=== PATIENT | female | born 1945 | race Two or more races ===

== ENCOUNTER → 2021-01-08 | Outpatient (CLI) | payer OTHER ==
[~2021-01-08] MED LIST: ALBUTEROL SULF 2.5 MG/0.5ML(0.5%) NEB SOLN ONE
== END | disposition home or self-care (01) ==
LOC: RT 10:27
PROVIDERS: ATTEND Internal Medicine Pulmonary Disease
DX: J98.4 Other disorders of lung (principal); R06.00 Dyspnea, unspecified
CPT/HCPCS: 94060; 94727; 94729

== ENCOUNTER → 2024-06-22 | Outpatient (CLI) | payer OTHER ==
--- NOTE | 2024-06-22 13:39 | DVHNC2 ---
Procedure - June 22, 2024 Pulmonary function test interpretation No obstructive or restrictive ventilatory defect. Significant bronchodilator response. Total lung capacity is below normal limits,70% of predicted (3.46 L). Severe reduction in diffusion capacity, 31% of predicted. TYLER YUEN RESIDENT Jun 22, 2024 13:39
--- NOTE | 2024-06-22 13:40 | DVHNC2 ---
Procedure - 6 minute walk test interpretation June 22, 2024 Expected heart rate achieved Completed 6 minutes of ambulation. Significant hypoxic event with the lowest saturation being 86% with exertion. Reduction in distance walk. TYLER YUEN RESIDENT Jun 22, 2024 13:40
== END | disposition home or self-care (01) ==
LOC: RT 10:58
PROVIDERS: ATTEND Internal Medicine Pulmonary Disease
DX: R05.9 Cough, unspecified (principal); R06.09 Other forms of dyspnea
CPT/HCPCS: 94060; 94618; 94727; 94729

== ENCOUNTER 2024-10-12 07:22 | Outpatient (CLI) | payer OTHER ==
[2024-10-12] MEDS ORDERED: LIDOCAINE 2%HCL (LOCAL ANESTH.) INJ 10ml MDV ONE (07:35)
[2024-10-12 09:09] VITALS: BP 126/57; PULSE 55; RESP 15; TEMP 98.3; O2SAT 99
[2024-10-12 09:29] VITALS: BP 121/65; PULSE 59; RESP 18; O2SAT 98
[2024-10-12 10:29] VITALS: BP 118/59; PULSE 64; RESP 21; O2SAT 94
--- NOTE | 2024-10-12 10:58 | DVH ---
EXAM: XY CHEST PORTABLE Indication: POST LUNG BX Technique: Single frontal view of the chest was obtained Comparison: None FINDINGS: Lines and Tubes: None Lungs: Right lower lung masslike opacity. Diffuse interstitial opacities. Pleura: No effusion. No pneumothorax. Cardiomediastinal contours: Unremarkable. Atherosclerotic vascular calcifications of the thoracic ao rta are noted. Bones: No acute osseous abnormality. IMPRESSION: No pneumothorax status post biopsy.
[2024-10-12 11:30] VITALS: BP 103/55; PULSE 57; RESP 20; O2SAT 97
[2024-10-12 11:59] VITALS: BP 99/47; PULSE 55; RESP 18; O2SAT 96
--- NOTE | 2024-10-12 12:02 | DVH ---
EXAM: XY CHEST PORTABLE Indication: DELAYED POST BX Technique: Single frontal view of the chest was obtained Comparison: XY CHEST PORTABLE on DOS: 10/12/24, XY CHEST PORTABLE on DOS: 10/12/24 FINDINGS: Lines and Tubes: None Lungs: Right lower lung masslike opacity. Diffuse interstitial opacities. Pleura: No effusion. No pneumothorax. Cardiomediastinal contours: Unremarkable. Atherosclerotic vascular calcifications of the thoracic ao rta are noted. Bones: No acute osseous abnormality. IMPRESSION: No pneumothorax status post biopsy.
--- NOTE | 2024-10-12 12:25 | DVH ---
CT CT GUIDANCE FOR NEEDLE PLACEME, HISTORY: PULMONARY NODULE PROCEDURE: Informed consent was obtained. The patient was placed supine on the CT scanner. A limited localization CT scan of the lung was obtained. The skin overlying the lesion was prepped with chlorhe xidine which was allowed to dry and draped in sterile fashion. Time out was performed. The skin and s oft tissues were infiltrated with Xylocaine. With intermittent CT guidance, a 19 gauge Temno outer co axial guiding needle was advanced into the right lung nodule. The needle position was confirmed with CT scan. 2 core biopsies were obtained using Temno inner 20 gauge biopsy needle. The specimens were s ent in formalin to pathology for analysis. A visceral blood patch was applied as the needle was wit hdrawn the needle was withdrawn, and post procedural CT obtained through the biopsy region. A small pneumothorax was noted, and patient was transport to recovery in stable condition without respiratory distress. DLP = 2346 mGy-cm. FINDINGS: Limited CT scan demonstrates soft tissue nodule in the right middle lobe and the biopsy ne edle within the margin of the lung mass. Small stable right pneumothorax. IMPRESSION/PLAN: CT guided lung biopsy. Pathology pending. Iatrogenic pneumothorax small and asymptomatic ; will follo w up CXRs. Bedrest until cleared by IR following post-biopsy CXRs.
== END 2024-10-12 17:00 | disposition home or self-care (01) ==
LOC: CT 07:22
PROVIDERS: ATTEND Internal Medicine Pulmonary Disease
DX: R91.1 Solitary pulmonary nodule (principal); J93.83 Other pneumothorax; J45.40 Moderate persistent asthma, uncomplicated; J84.9 Interstitial pulmonary disease, unspecified; J96.11 Chronic respiratory failure with hypoxia; Z79.899 Other long term (current) drug therapy; Z88.0 Allergy status to penicillin; Z88.2 Allergy status to sulfonamides
CPT/HCPCS: 32408; 71045; 71250; 88305; 88342; J2003; 10005; 77012